=== PATIENT | male | born 1990 | race Caucasian/White ===

== ENCOUNTER 2016-10-01 12:34 | Emergency (ER) | payer SELFPAY ==
[2016-10-01] MEDS: diphenhydrAMINE HCL 50 MG/ML VIAL IM ONE (13:03)
[2016-10-01] MEDS: LORATADINE 10 MG TABLET PO ONE (13:04)
--- NOTE | 2016-10-01 13:09 | ED Physician Documentation ---
General Adult - HISTORIAN Historian: patient - HPI Stated Complaint: wasp sting Chief Complaint: General Adult Further Comments: yes (26 year old male patient present with bee sting left side of neck. 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.) - ROS CONST: no problems EYES/ENT: none CVS/RESP: none GI/: none MS/SKIN/LYMPH: none NEURO/PSYCH: denies: headache, fainting, dizziness, tingling, numbness, difficulty walking, difficulty with speech, anxiety, depression, other - PAST HX Past History: none Other History: none Allergies/Adverse Reactions: Allergies Allergy/AdvReac Type Severity Reaction Status Date / Time No Known Allergies Allergy Verified 10/01/16 12:40 Home Medications: Ambulatory Orders Medication Instructions Recorded NK [NK] 10/01/16 - SOCIAL HX Smoking History: cigarettes - FAMILY HX Family History: No - VITAL SIGNS Vital Signs: Vital Signs Temp Pulse Resp BP Pulse Ox 98 F 91 H 20 140/76 96 10/01/16 12:36 10/01/16 12:36 10/01/16 12:36 10/01/16 12:36 10/01/16 12:36 - REVIEWED ASSESSMENTS Nursing Assessment Reviewed: Yes Vitals Reviewed: Yes Progress - Progress Progress: Patient medicated with benadryl and claritan in ER. Reviewed discharge instructions and care. Verbalized understanding. ED Results Lab/Radiology - Orders Orders: ED Orders Category Date Time Status Loratadine [Claritin] Med 10/01/16 12:56 Discontinued 10 mg PO NOW ONE diphenhydrAMINE HCL [Benadryl] Med 10/01/16 12:54 Discontinued 50 mg IM NOW ONE General Adult Physical Exam - PHYSICAL EXAM GENERAL APPEARANCE: mild distress EENT: eye inspection normal, ENT inspection normal, pharynx normal, no signs of dehydration, TERESITA, no nystagmus, TM's nml, other (no stridor) RESPIRATORY: no resp distress, chest non-tender, breath sounds normal CVS: reg rate & rhythm, heart sounds normal, equal pulses, no murmur, no gallop , PMI nml, no JVD, no friction rub, 24 ABDOMEN: soft, no organomegaly, normal bowel sounds, no abdominal bruit, no distension SKIN: warm/dry, normal color, other (Ecchymosis and mild edema noted over left side of neck. ) NEURO: oriented X3, CN's nml as tested, motor nml, sensation nml, mood/affect nml Discharge Clincal Impression: Bee sting allergy, bee sting localized reaction Referrals: Primary Doctor,No [Primary Care Provider] - 2 Days Additional Instructions: Ice to area Benadryl 25-50mg every 6 hours as needed for swelling, sting Home Medications: Ambulatory Orders NK [NK] 10/01/16 Condition: Stable Disposition: 01 HOME, SELF-CARE Decision to Admit: NO Decision Time: 13:08
[2016-10-01 13:19] VITALS: BP 111/66
== END 2016-10-01 13:17 | disposition home or self-care (01) ==
LOC: ED 12:34
DX: T63.441A Toxic effect of venom of bees, accidental (unintentional), initial encounter (principal); X58.XXXA Exposure to other specified factors, initial encounter; Y93.9 Activity, unspecified; Y99.9 Unspecified external cause status
CPT/HCPCS: 96372; 99283; J1200